=== PATIENT | male | born 1965 | race Caucasian/White ===

== ENCOUNTER → 2017-01-13 | Outpatient (CLI) | payer BC ==
[2017-01-13 14:29] LABS: MEAN CORPUSCULAR HEMOGLOBIN 30.4 pg (27.0-33.0); MEAN CORPUSCULAR HGB CONC 34.8 g/dl (32.0-36.5); MEAN CORPUSCULAR VOLUME 87.2 fl (80.0-96.0); RED CELL DISTRIBUTION WIDTH 12.9 % (11.5-14.5); WHITE BLOOD COUNT 7.5 K/mm3 (4.0-10.0)
[2017-01-13 14:57] LABS: ALBUMIN 3.6 GM/DL (3.2-5.2); ALBUMIN/GLOBULIN RATIO 1.29 (1.00-1.93); ALKALINE PHOSPHATASE 101 U/L (45-117); ALT/SGPT 34 U/L (12-78); ANION GAP 8 MEQ/L (8-16); AST/SGOT 20 U/L (15-37); BILIRUBIN,TOTAL 0.6 MG/DL (0.2-1.0); BLOOD UREA NITROGEN 20 MG/DL (7-18); CALCIUM LEVEL 8.7 MG/DL (8.5-10.1); CARBON DIOXIDE LEVEL 29 MEQ/L (21-32); CHLORIDE LEVEL 102 MEQ/L (98-107); CHOLESTEROL LEVEL 118 MG/DL (<200); CREATININE FOR GFR 1.05 MG/DL (0.70-1.30); GLOMERULAR FILTRATION RATE > 60.0 (>56); GLUCOSE, FASTING 208 MG/DL (70-105); POTASSIUM SERUM 4.4 MEQ/L (3.5-5.1); SODIUM LEVEL 139 MEQ/L (136-145); TOTAL PROTEIN 6.4 GM/DL (6.4-8.2); TRIGLYCERIDES LEVEL 248 MG/DL (<150)
== END ==
LOC: M LAB 13:50
PROVIDERS: ATTEND Family Medicine
DX: E11.9 Type 2 diabetes mellitus without complications (principal)

== ENCOUNTER 2017-05-27 08:41 | Day surgery (SDC) | payer BC ==
[2017-05-27] MEDS: NS 1,000 ML IV (09:00)
[2017-05-27] MEDS ORDERED: PROPOFOL 200 MG/20 ML VIAL As Ordered ×2 (09:42→10:13)
[2017-05-27] MEDS ORDERED: PHENYLephrine HCL 500 MCG/5 ML (100MCG/ML) SYRINGE (J2370) As Ordered (10:00)
== END 2017-05-27 10:29 | disposition home or self-care (01) ==
LOC: M OPP 08:41
DX: Z12.11 Encounter for screening for malignant neoplasm of colon (principal); K64.0 First degree hemorrhoids; I10 Essential (primary) hypertension; I25.10 Atherosclerotic heart disease of native coronary artery without angina pectoris; I25.2 Old myocardial infarction; E78.5 Hyperlipidemia, unspecified; Z95.1 Presence of aortocoronary bypass graft; E11.9 Type 2 diabetes mellitus without complications; F32.9 Major depressive disorder, single episode, unspecified; M41.9 Scoliosis, unspecified; Z87.891 Personal history of nicotine dependence; Z79.82 Long term (current) use of aspirin; Z79.899 Other long term (current) drug therapy; Z80.51 Family history of malignant neoplasm of kidney
CPT/HCPCS: G0121

== ENCOUNTER 2019-11-29 02:42 | Inpatient (IN) | payer BC ==
[~2019-11-29 02:42] MED LIST: ASPI81TA86 PO; CENTTAB PO; CRES10TA PO; FISH1000 PO; LISI-538 PO; METF500T13 PO; METO50TA7 PO; OMEP-358 PO; SERT-141 PO
[2019-11-29] MEDS ORDERED: SOD POLYSTYRENE SULFONATE SUSP 15 GM/60 ML UD ONE (05:35)
[2019-11-29] MEDS ORDERED: PATIROMER SORBITEX CALCIUM 8.4 GM POWDER PACKET (VELTASSA) ONE (08:00)
[2019-11-29] MEDS ORDERED: SODIUM BICARBONATE 8.4% INJ 50MEQ 50 ML VIAL ONE ×2 (14:00→21:00)
[2019-11-29] MEDS ORDERED: HEPARIN SOD (PORCINE) 5000UNITS/ML 1ML VIAL/SYRINGE As Ordered ONE ×2 (16:21→21:01)
[2019-11-29] MEDS ORDERED: HEPARIN SOD (PORCINE) 5000UNITS/ML 1ML VIAL/SYRINGE ONE ×2 (16:21→21:01)
[2019-11-30] MEDS ORDERED: SODIUM BICARBONATE 8.4% INJ 50MEQ 50 ML VIAL ONE ×2 (04:00→14:00)
[2019-11-30] MEDS ORDERED: HEPARIN SOD (PORCINE) 5000UNITS/ML 1ML VIAL/SYRINGE ONE ×3 (05:54→20:21)
[2019-11-30] MEDS ORDERED: HEPARIN SOD (PORCINE) 5000UNITS/ML 1ML VIAL/SYRINGE As Ordered ONE ×3 (05:54→20:21)
[2019-11-30] MEDS ORDERED: OMEPRAZOLE 20 MG CAP ONE (12:12)
[2019-11-30] MEDS ORDERED: ATORVASTATIN 20 MG TAB ONE (12:12)
[2019-11-30] MEDS ORDERED: ASPIRIN 81 MG CHEW TABLET ONE (12:12)
[2019-11-30] MEDS ORDERED: ATORVASTATIN 20 MG TAB As Ordered ONE (12:12)
[2019-11-30] MEDS ORDERED: OMEPRAZOLE 20 MG CAP As Ordered ONE (12:12)
[2019-11-30] MEDS ORDERED: ASPIRIN 81 MG CHEW TABLET As Ordered ONE (12:13)
[2019-11-30] MEDS ORDERED: OMEGA-3 1000MG CAPSULE ONE (13:00)
[2019-11-30] MEDS ORDERED: LACTOBACILLUS ACIDOPHILUS CAP (BACID) As Ordered ONE ×2 (14:25→20:21)
[2019-11-30] MEDS ORDERED: LACTOBACILLUS ACIDOPHILUS CAP (BACID) ONE ×2 (14:25→20:21)
[2019-11-30] MEDS ORDERED: ACETAMINOPHEN 325 MG TAB As Ordered ONE (16:18)
[2019-11-30] MEDS ORDERED: ACETAMINOPHEN 325 MG TAB ONE (16:18)
[2019-11-30] MEDS ORDERED: MULTIVITAMINS/MINERALS THERAP 1 TAB ONE (20:21)
[2019-11-30] MEDS ORDERED: MULTIVITAMINS/MINERALS THERAP 1 TAB As Ordered ONE (20:21)
[2019-12-01] MEDS ORDERED: SODIUM BICARBONATE 8.4% INJ 50MEQ 50 ML VIAL ONE ×2 (01:00→13:59)
[2019-12-01] MEDS ORDERED: HEPARIN SOD (PORCINE) 5000UNITS/ML 1ML VIAL/SYRINGE ONE (05:54)
[2019-12-01] MEDS ORDERED: HEPARIN SOD (PORCINE) 5000UNITS/ML 1ML VIAL/SYRINGE As Ordered ONE (05:54)
[2019-12-01] MEDS ORDERED: ASPIRIN 81 MG CHEW TABLET ONE (09:02)
[2019-12-01] MEDS ORDERED: OMEPRAZOLE 20 MG CAP ONE (09:02)
[2019-12-01] MEDS ORDERED: MAGNESIUM SULFATE 1GM/100ML D5W BAG (10MG/ML) As Ordered ONE (09:02)
[2019-12-01] MEDS ORDERED: ATORVASTATIN 20 MG TAB ONE (09:02)
[2019-12-01] MEDS ORDERED: MAGNESIUM SULFATE 1GM/100ML D5W BAG (10MG/ML) ONE (09:02)
[2019-12-01] MEDS ORDERED: LACTOBACILLUS ACIDOPHILUS CAP (BACID) ONE (09:02)
[2019-12-01] MEDS ORDERED: ASPIRIN 81 MG CHEW TABLET As Ordered ONE (09:03)
[2019-12-01] MEDS ORDERED: ATORVASTATIN 20 MG TAB As Ordered ONE (09:03)
[2019-12-01] MEDS ORDERED: OMEPRAZOLE 20 MG CAP As Ordered ONE (09:03)
[2019-12-01] MEDS ORDERED: LACTOBACILLUS ACIDOPHILUS CAP (BACID) As Ordered ONE (09:04)
[2020-01-04 12:37] LABS: CLOSTRIDIUM DIFFICILE PCR NEGATIVE (NEGATIVE)
[2020-01-19 12:04] LABS: BASO # 0.1 10^3/uL (0.0-0.2); BASO % 0.5 % (0.0-1.0); EOS # 0.2 10^3/uL (0.0-0.5); EOS % 1.7 % (0.0-3.0); HEMATOCRIT 45.7 % (42.0-52.0); HEMOGLOBIN 14.5 g/dl (13.5-17.5); LYMPH # 1.3 10^3/uL (1.5-5.0); MEAN CORPUSCULAR HEMOGLOBIN 28.4 pg (27.0-33.0); MEAN CORPUSCULAR HGB CONC 31.7 g/dl (32.0-36.5); MEAN CORPUSCULAR VOLUME 89.6 fl (80.0-96.0); MONO # 0.6 10^3/uL (0.0-0.8); MONO % 4.5 % (0.0-5.0); NEUTROPHILS # 10.9 10^3/uL (1.5-8.5); NEUTROPHILS % 82.5 % (36.0-66.0); PLATELET COUNT, AUTOMATED 399 10^3/uL (150-450); WHITE BLOOD COUNT 13.2 10^3/uL (4.0-10.0)
[2020-01-19 12:08] LABS: BASO # 0.1 10^3/uL (0.0-0.2); BASO % 0.4 % (0.0-1.0); EOS # 0.1 10^3/uL (0.0-0.5); EOS % 1.2 % (0.0-3.0); HEMATOCRIT 43.1 % (42.0-52.0); HEMOGLOBIN 13.4 g/dl (13.5-17.5); LYMPH # 1.4 10^3/uL (1.5-5.0); LYMPH % 12.3 % (24.0-44.0); MEAN CORPUSCULAR HEMOGLOBIN 28.6 pg (27.0-33.0); MEAN CORPUSCULAR HGB CONC 31.1 g/dl (32.0-36.5); MEAN CORPUSCULAR VOLUME 92.1 fl (80.0-96.0); MONO # 0.5 10^3/uL (0.0-0.8); MONO % 4.3 % (0.0-5.0); NEUTROPHILS # 9.4 10^3/uL (1.5-8.5); NEUTROPHILS % 80.5 % (36.0-66.0); PLATELET COUNT, AUTOMATED 359 10^3/uL (150-450); RED BLOOD COUNT 4.68 10^6/uL (4.30-6.10); WHITE BLOOD COUNT 11.6 10^3/uL (4.0-10.0)
[2020-01-28 08:31] LABS: BASO % 0.6 % (0.0-1.0); EOS # 0.2 10^3/uL (0.0-0.5); EOS % 3.8 % (0.0-3.0); HEMATOCRIT 35.5 % (42.0-52.0); HEMOGLOBIN 11.4 g/dl (13.5-17.5); LYMPH # 0.9 10^3/uL (1.5-5.0); LYMPH % 16.7 % (24.0-44.0); MEAN CORPUSCULAR HEMOGLOBIN 28.6 pg (27.0-33.0); MEAN CORPUSCULAR HGB CONC 32.1 g/dl (32.0-36.5); MEAN CORPUSCULAR VOLUME 89.2 fl (80.0-96.0); MONO # 0.5 10^3/uL (0.0-0.8); MONO % 8.5 % (0.0-5.0); NEUTROPHILS # 3.7 10^3/uL (1.5-8.5); NEUTROPHILS % 69.6 % (36.0-66.0); PLATELET COUNT, AUTOMATED 196 10^3/uL (150-450); RED BLOOD COUNT 3.98 10^6/uL (4.30-6.10); WHITE BLOOD COUNT 5.3 10^3/uL (4.0-10.0)
[2020-01-28 11:04] LABS: HEMOGLOBIN 11.6 g/dl (13.5-17.5); MEAN CORPUSCULAR HEMOGLOBIN 28.9 pg (27.0-33.0); MEAN CORPUSCULAR HGB CONC 33.1 g/dl (32.0-36.5); MEAN CORPUSCULAR VOLUME 87.3 fl (80.0-96.0); PLATELET COUNT, AUTOMATED 240 10^3/uL (150-450); RED BLOOD COUNT 4.01 10^6/uL (4.30-6.10); WHITE BLOOD COUNT 5.3 10^3/uL (4.0-10.0)
[2020-02-12 14:56] LABS: POTASSIUM RANDOM URINE 26.8 MEQ/L; SODIUM,RANDOM URINE 22 MEQ/L; TOTAL PROTEIN,RANDOM URINE 116.8 MG/DL (0.0-12.0)
[2020-02-12 14:59] LABS: CHLORIDE,RANDOM URINE 28 MEQ/L; UREA NITROGEN RANDOM URINE 238 MG/DL
[2020-02-12 19:26] LABS: ALBUMIN 3.8 GM/DL (3.2-5.2); ALT/SGPT 16 U/L (12-78); BILIRUBIN,DIRECT 0.2 MG/DL (0.0-0.2); BILIRUBIN,TOTAL 0.4 MG/DL (0.2-1.0); BLOOD UREA NITROGEN 87 MG/DL (7-18); CALCIUM LEVEL 8.1 MG/DL (8.5-10.1); CARBON DIOXIDE LEVEL 11 MEQ/L (21-32); CHLORIDE LEVEL 99 MEQ/L (98-107); CK-MB VALUE MASS 1.6 NG/ML (<3.6); CPK CREATINE PHOSPHOKINASE 84 U/L (39-308); GLUCOSE, FASTING 88 MG/DL (70-100); LIPASE 635 U/L (73-393); POTASSIUM SERUM 6.4 MEQ/L (3.5-5.1); SODIUM LEVEL 130 MEQ/L (136-145); TROPONIN I < 0.02 NG/ML (< 0.10)
[2020-02-20 16:42] LABS: CALCIUM LEVEL 8.1 MG/DL (8.5-10.1); CREATININE FOR GFR 2.27 MG/DL (0.70-1.30); GLOMERULAR FILTRATION RATE 32.3 (>56); MAGNESIUM LEVEL 1.3 MG/DL (1.8-2.4); PHOSPHORUS LEVEL 4.9 MG/DL (2.5-4.9); POTASSIUM SERUM 3.7 MEQ/L (3.5-5.1); URIC ACID 12.8 MG/DL (3.5-7.2)
[2020-02-21 11:48] LABS: CALCIUM LEVEL 7.3 MG/DL (8.5-10.1); CREATININE FOR GFR 10.4 MG/DL (0.70-1.30); GLOMERULAR FILTRATION RATE 5.6 (>56); HEMOGLOBIN A1c 6.2 %; PHOSPHORUS LEVEL 8.4 MG/DL (2.5-4.9); POTASSIUM SERUM 5.4 MEQ/L (3.5-5.1); PTH INTACT 293.9 PG/ML (18.5-88.0); TOTAL 25(OH) VITAMIN D 10.8 NG/ML (30.0-100.0)
[2020-02-21 11:48] LABS: ALBUMIN 2.7 GM/DL (3.2-5.2); CALCIUM LEVEL 6.9 MG/DL (8.5-10.1); CREATININE FOR GFR 7.63 MG/DL (0.70-1.30); PHOSPHORUS LEVEL 8.2 MG/DL (2.5-4.9); POTASSIUM SERUM 4.9 MEQ/L (3.5-5.1)
[2020-02-21 11:48] LABS: ACETONE/KETONE 13.92 MG/DL (<2.81); CALCIUM LEVEL 7.2 MG/DL (8.5-10.1); CREATININE FOR GFR 10.1 MG/DL (0.70-1.30); GLOMERULAR FILTRATION RATE 5.8 (>56); POTASSIUM SERUM 6.5 MEQ/L (3.5-5.1)
[2020-02-21 11:48] LABS: CALCIUM LEVEL 6.8 MG/DL (8.5-10.1); CREATININE FOR GFR 8.87 MG/DL (0.70-1.30); GLOMERULAR FILTRATION RATE 6.7 (>56); PHOSPHORUS LEVEL 8.3 MG/DL (2.5-4.9); POTASSIUM SERUM 5.4 MEQ/L (3.5-5.1)
[2020-02-22 20:16] LABS: ALBUMIN 2.8 GM/DL (3.2-5.2); CALCIUM LEVEL 7.2 MG/DL (8.5-10.1); CREATININE FOR GFR 4.61 MG/DL (0.70-1.30); GLOMERULAR FILTRATION RATE 14.3 (>56); PHOSPHORUS LEVEL 5.7 MG/DL (2.5-4.9); POTASSIUM SERUM 3.9 MEQ/L (3.5-5.1)
[2020-02-22 20:22] LABS: ALBUMIN 2.8 GM/DL (3.2-5.2); CALCIUM LEVEL 7.1 MG/DL (8.5-10.1); CREATININE FOR GFR 6.29 MG/DL (0.70-1.30); MAGNESIUM LEVEL 1.9 MG/DL (1.8-2.4); PHOSPHORUS LEVEL 7.9 MG/DL (2.5-4.9); POTASSIUM SERUM 4.7 MEQ/L (3.5-5.1)
== END 2019-12-01 14:00 | disposition home or self-care (01) | DRG 469 ==
LOC: M ED 02:42 → M MS5PR 06:47 → M ED 06:47
PROVIDERS: ADMIT Internal Medicine; ATTEND Internal Medicine
DX: N17.9 Acute kidney failure, unspecified (principal); I95.9 Hypotension, unspecified; E87.2 Acidosis; E87.5 Hyperkalemia; E83.39 Other disorders of phosphorus metabolism; E11.9 Type 2 diabetes mellitus without complications; I10 Essential (primary) hypertension; I25.10 Atherosclerotic heart disease of native coronary artery without angina pectoris; E86.0 Dehydration; R19.7 Diarrhea, unspecified; Z79.899 Other long term (current) drug therapy

== ENCOUNTER → 2019-12-06 | Outpatient (REF) | payer BC ==
[2020-01-22 09:57] LABS: FOLATE 22.1 NG/ML; PERCENT SATURATION 17.6 % (19.7-50.0)
== END ==
LOC: M LAB REF 13:16
PROVIDERS: ATTEND Internal Medicine Nephrology
DX: D64.9 Anemia, unspecified (principal)

== ENCOUNTER → 2020-11-22 | Outpatient (REF) | payer BC ==
[~2020-11-22] MED LIST changes: -LISI-538 PO; +LISI20TA33 PO
== END ==
LOC: M LAB REF 16:50
PROVIDERS: ATTEND Podiatrist
DX: L03.031 Cellulitis of right toe (principal); M79.671 Pain in right foot

== ENCOUNTER → 2021-01-30 | Outpatient (REF) | payer BC | LOC: M LAB REF 13:25 | PROVIDERS: ATTEND Internal Medicine Nephrology | DX: N18.31 Chronic kidney disease, stage 3a (principal) ==

== ENCOUNTER → 2021-07-05 | Outpatient (REF) | LOC: M LABSMTC 10:14 | PROVIDERS: ATTEND Family Medicine | DX: Z11.52 Encounter for screening for COVID-19 (principal) ==

== ENCOUNTER 2021-12-14 02:35 | Emergency (ER) | payer BC ==
[~2021-12-14] VITALS: Ht 165.1 cm; Wt 103.6 kg
[2021-12-14] MEDS ORDERED: ATOR1TAB21 PO (02:45)
[2021-12-14] MEDS ORDERED: METO25TA4 PO (02:45)
[2021-12-14] MEDS ORDERED: GLIP5TAB8 PO (02:45)
[2021-12-14] MEDS ORDERED: MAGN400C2 PO (03:17)
[2021-12-14] MEDS ORDERED: ASPIRIN 81 MG CHEW TABLET PO ONE (07:25)
[2021-12-14 08:24] LABS: BASO # 0.1 10^3/uL (0.0-0.2); EOS # 0.3 10^3/uL (0.0-0.5); EOS % 3.4 % (0.0-3.0); HEMATOCRIT 50.8 % (42.0-52.0); HEMOGLOBIN 16.5 g/dl (13.5-17.5); LYMPH # 2.4 10^3/uL (1.5-5.0); MEAN CORPUSCULAR HEMOGLOBIN 27.8 pg (27.0-33.0); MEAN CORPUSCULAR HGB CONC 32.5 g/dl (32.0-36.5); MEAN CORPUSCULAR VOLUME 85.7 fl (80.0-96.0); MONO # 0.6 10^3/uL (0.0-0.8); MONO % 6.5 % (2.0-8.0); NEUTROPHILS % 63.4 % (36.0-66.0); PLATELET COUNT, AUTOMATED 247 10^3/uL (150-450); RED BLOOD COUNT 5.93 10^6/uL (4.30-6.10); WHITE BLOOD COUNT 9.5 10^3/uL (4.0-10.0)
[2021-12-14 08:37] LABS: CALCIUM LEVEL 9.3 MG/DL (8.5-10.1); CREATININE FOR GFR 1.37 MG/DL (0.70-1.30); GLOMERULAR FILTRATION RATE 57.6 (>56); POTASSIUM SERUM 4.3 MEQ/L (3.5-5.1)
[2021-12-14 08:44] LABS: CK-MB VALUE MASS 8.5 NG/ML (<3.6); MB/CK RELATIVE INDEX 5.31 (< OR =4)
[2021-12-14] MEDS ORDERED: HEPARIN DRIP 25,000 UNITS in IV 1 EA IV SCH (08:55)
[2021-12-14] MEDS ORDERED: HEPARIN SOD (PORCINE) 5000UNITS/ML 1ML VIAL/SYRINGE IV ONE (08:55)
[2021-12-14 10:02] LABS: CK-MB VALUE MASS 10.1 NG/ML (<3.6); MB/CK RELATIVE INDEX 6.12 (< OR =4)
[2021-12-14 10:20] VITALS: BP 152/70
[2021-12-14] MEDS ORDERED: METOPROLOL TART 25 MG TABLET PO ONE (10:20)
[2021-12-14 12:30] VITALS: BP 131/75
== END 2021-12-14 13:04 | disposition short-term general hospital (02) ==
LOC: M ED 02:35
DX: I21.4 Non-ST elevation (NSTEMI) myocardial infarction (principal); M41.9 Scoliosis, unspecified; J84.9 Interstitial pulmonary disease, unspecified; E11.9 Type 2 diabetes mellitus without complications; K21.9 Gastro-esophageal reflux disease without esophagitis; I25.10 Atherosclerotic heart disease of native coronary artery without angina pectoris; Z79.82 Long term (current) use of aspirin; Z79.899 Other long term (current) drug therapy
CPT/HCPCS: 71045; 72040; 80048; 82550; 82553; 84484; 85025; 85730; 87635; 93005; 93041; 94760; 96365; 96366; 99285; J1644

== ENCOUNTER → 2022-07-07 | Outpatient (CLI) | payer BC ==
[~2022-07-07] MED LIST changes: +ATOR1TAB21 PO; +GLIP5TAB8 PO; +MAGN400C2 PO; +METO25TA4 PO
== END ==
LOC: M CARPUL 08:07
PROVIDERS: ATTEND Nurse Practitioner Family
DX: I25.10 Atherosclerotic heart disease of native coronary artery without angina pectoris (principal)

== ENCOUNTER → 2022-07-07 | Outpatient (CLI) | payer BC ==
[2022-07-07 09:37] LABS: BASO # 0.1 10^3/uL (0.0-0.2); BASO % 1.1 % (0.0-1.0); EOS # 0.4 10^3/uL (0.0-0.5); EOS % 4.4 % (0.0-3.0); HEMATOCRIT 51.6 % (42.0-52.0); HEMOGLOBIN 15.7 g/dl (13.5-17.5); LYMPH # 2.1 10^3/uL (1.5-5.0); LYMPH % 21.8 % (24.0-44.0); MEAN CORPUSCULAR HEMOGLOBIN 25.8 pg (27.0-33.0); MEAN CORPUSCULAR HGB CONC 30.4 g/dl (32.0-36.5); MEAN CORPUSCULAR VOLUME 84.7 fl (80.0-96.0); MONO # 0.6 10^3/uL (0.0-0.8); NEUTROPHILS # 6.2 10^3/uL (1.5-8.5); NEUTROPHILS % 65.2 % (36.0-66.0); PLATELET COUNT, AUTOMATED 259 10^3/uL (150-450); RED BLOOD COUNT 6.09 10^6/uL (4.30-6.10); WHITE BLOOD COUNT 9.4 10^3/uL (4.0-10.0)
[2022-07-07 10:09] LABS: ALBUMIN 3.9 G/DL (3.2-5.2); ALKALINE PHOSPHATASE 139 U/L (46-116); ALT/SGPT 29 U/L (7.0-40); AST/SGOT 20 U/L (<34); BILIRUBIN,TOTAL 0.9 MG/DL (0.3-1.2); BLOOD UREA NITROGEN 24 MG/DL (9-23); CALCIUM LEVEL 9.3 MG/DL (8.5-10.1); CARBON DIOXIDE LEVEL 30 MMOL/L (20-31); CHLORIDE LEVEL 101 MMOL/L (98-107); CHOLESTEROL LEVEL 144 MG/DL (<200); CHOLESTEROL RISK RATIO 4.31 (<5); CREATININE FOR GFR 1.21 MG/DL (0.70-1.30); GLOMERULAR FILTRATION RATE > 60.0 (>56); GLUCOSE, FASTING 212 MG/DL (60-100); HDL CHOLESTEROL 33.4 MG/DL (>40); LDL CHOLESTEROL 61.8 MG/DL (<100); NON-HDL-C 110.6 MG/DL; POTASSIUM SERUM 4.4 MMOL/L (3.5-5.1); SODIUM LEVEL 138 MMOL/L (136-145); TOTAL PROTEIN 7.1 G/DL (5.7-8.2); TRIGLYCERIDES LEVEL 244 MG/DL (<150)
== END ==
LOC: M LAB 08:10
PROVIDERS: ATTEND Family Medicine
DX: E11.9 Type 2 diabetes mellitus without complications (principal)

== ENCOUNTER → 2022-08-19 | Outpatient (REF) | payer BC | LOC: M LAB REF 16:44 | PROVIDERS: ATTEND Podiatrist | DX: L03.032 Cellulitis of left toe (principal) ==

== ENCOUNTER → 2022-10-16 | Outpatient (REF) | LOC: M EMP 11:32 | PROVIDERS: ATTEND Family Medicine | DX: Z11.52 Encounter for screening for COVID-19 (principal) ==

== ENCOUNTER 2023-04-14 07:29 | Day surgery (SDC) | payer BC ==
[~2023-04-14] VITALS: Ht 165.1 cm; Wt 102.5 kg
[~2023-04-14 07:29] MED LIST changes: +ATOR40TA75 PO; +BSS IRR 500ML/OMIDRIA 4ML IRR BAG (OR ONLY) As Ordered ONE; +CEPH500C PO; +CYCLOPENTOLATE 1% OPHTH SOLN 2ML BTL OS SCH; +ECOT81TA5 PO; +FARX1TAB5 PO; +GLIP5TAB17 PO; -GLIP5TAB8 PO; +LIDOCAINE 1% SDV 5ML VIAL As Ordered ONE; +OFLOXACIN 0.3 % (OCUFLOX) OPTH SOL 5ML OS SCH; +OMEG10002 PO; +OMEP-173 PO; +PHENYLEPHRINE 2.5% OPHTH SOL 2ML OS SCH; +PROPARACAINE 0.5% OPHTH SOL 15ML OS ONE; +TROPICAMIDE 1% OPHTH SOLN 15ML OS SCH; +VITMTA PO
[2023-04-14] MEDS ORDERED: ACET-897 PO (08:13)
[2023-04-14] MEDS ORDERED: CEFUROXIME 1MG/0.1ML INTRACAMERAL INJ As Ordered ONE (09:24)
[2023-04-14 09:55] VITALS: BP 125/75; TEMP 97.7; O2SAT 95
== END 2023-04-14 10:12 | disposition home or self-care (01) ==
LOC: M SDC 07:29
PROVIDERS: ATTEND Ophthalmology
DX: E11.36 Type 2 diabetes mellitus with diabetic cataract (principal); H25.12 Age-related nuclear cataract, left eye; I10 Essential (primary) hypertension; I25.10 Atherosclerotic heart disease of native coronary artery without angina pectoris; I25.2 Old myocardial infarction; Z95.5 Presence of coronary angioplasty implant and graft; E78.00 Pure hypercholesterolemia, unspecified; Z95.1 Presence of aortocoronary bypass graft; Z79.899 Other long term (current) drug therapy; Z79.84 Long term (current) use of oral hypoglycemic drugs; Z87.891 Personal history of nicotine dependence
CPT/HCPCS: 66984; J0697; J1097; V2632

== ENCOUNTER → 2023-12-11 | Outpatient (REF) ==
[~2023-12-11] MED LIST changes: +ACET-897 PO; -BSS IRR 500ML/OMIDRIA 4ML IRR BAG (OR ONLY) As Ordered ONE; -CYCLOPENTOLATE 1% OPHTH SOLN 2ML BTL OS SCH; -LIDOCAINE 1% SDV 5ML VIAL As Ordered ONE; -OFLOXACIN 0.3 % (OCUFLOX) OPTH SOL 5ML OS SCH; -PHENYLEPHRINE 2.5% OPHTH SOL 2ML OS SCH; -PROPARACAINE 0.5% OPHTH SOL 15ML OS ONE; -TROPICAMIDE 1% OPHTH SOLN 15ML OS SCH
== END ==
LOC: M EMP 08:14
PROVIDERS: ATTEND Family Medicine
DX: Z11.52 Encounter for screening for COVID-19 (principal)

== ENCOUNTER → 2024-05-11 | Outpatient (CLI) | payer BC | LOC: M RAD 09:53 | PROVIDERS: ATTEND Family Medicine | DX: R22.9 Localized swelling, mass and lump, unspecified (principal); K43.9 Ventral hernia without obstruction or gangrene ==

== ENCOUNTER → 2024-06-06 | Outpatient (REF) | LOC: M EMP 15:34 | PROVIDERS: ATTEND Family Medicine | DX: Z11.52 Encounter for screening for COVID-19 (principal) ==